=== PATIENT | male | born 1950 | race Two or more races ===

== ENCOUNTER 2024-04-23 05:10 | Day surgery (SDC) | payer OTHER ==
[2024-04-17 09:27] LABS: URINE APPEARANCE Clear; URINE BILIRRUBIN Negative (NEGATIVE); URINE BLOOD Negative; URINE COLOR Yellow; URINE GLUCOSE Negative (NEGATIVE); URINE KETONE Negative (NEGATIVE); URINE LEUKOCYTE Negative; URINE NITRATE Negative; URINE PROTEIN Negative (NEGATIVE); URINE UROBILINOGEN 0.2 E.U./dl
[2024-04-17 09:28] LABS: URINE RBC 12.3 uL (0.0-20.8)
[2024-04-17 09:30] LABS: URINE BACTERIA 0 uL (0.0-1933); URINE EPITHELIAL CELLS 0.4 uL (0.0-38.8); URINE WBC 0.4 uL (0.0-23.2)
[2024-04-17 09:39] LABS: HEMATOCRIT 38.4 % (39.0-48.0); HEMOGLOBIN 13.3 g/dL (13-16.00); MEAN CELL VOLUME 89.7 fL (80.0-100.00); MEAN CORPUSCULAR HEMOGLOBIN 31.1 pg (27.00-32.0); MEAN CORPUSCULAR HGB CONC 34.6 g/dl (32.0-36.0); PLATELET COUNT 191 K/uL (150-450); RED BLOOD COUNT 4.27 M/uL (4.00-6.00)
[2024-04-17 09:55] LABS: INR 0.97; PARTIAL THROMBOPLASTIN TIME 28.2 SECONDS (22.0-34.0); PROTHROMBIN TIME 10.6 SECONDS (9.0-11.5)
[2024-04-17 10:01] LABS: ALBUMIN 3.6 gm/dL (3.4-5.0); BILIRUBIN TOTAL 0.64 mg/dL (0.3-1.2); CALCIUM 9.7 mg/dL (8.5-10.1); CREATININE SERUM 1.15 mg/dL (0.70-1.30); GFR 62.33; GLOBULINA 3.8 G/DL (2.4-3.5); POTASSIUM 4.32 mEq/L (3.5-5.1); TOTAL PROTEIN 7.4 gm/dL (6.4-8.2)
[~2024-04-23 05:10] MED LIST: INDERAL LA80 MG PO; METFORMIN HCL500 M3 PO; SYNTHROID100 MCG PO; SYNTHROID112 MCG PO
[2024-04-23] MEDS ORDERED: KETOROLAC TROMETHAMINE 30 MG VIAL ONE ×2 (06:51→06:52)
[2024-04-23] MEDS ORDERED: BUPIVACAINE HCL/MPF 0.5% 30ML VIAL ONE (06:51)
[2024-04-23] MEDS ORDERED: LIDOCAINE HCL 1%/EPINEPHRINE 20ML VIAL IJ ONE (06:52)
[2024-04-23] MEDS ORDERED: CEFAZOLIN SODIUM 1,000 MG VIAL ONE (07:13)
[2024-04-23] MEDS ORDERED: SUGAMMADEX SODIUM 200 MG/2 ML VIAL IV ONE (08:56)
[2024-04-23] MEDS ORDERED: MORPHINE SULFATE 2 MG/ML CARTRIDGE IV ONE (10:55)
[2024-04-23] MEDS ORDERED: MORPHINE SULFATE 4 MG/ML VIAL IV ONE (10:55)
== END 2024-04-23 12:00 | disposition home or self-care (01) ==
LOC: CIR.AMB 05:10
PROVIDERS: ATTEND Orthopaedic Surgery
DX: M75.122 Complete rotator cuff tear or rupture of left shoulder, not specified as traumatic (principal); M24.112 Other articular cartilage disorders, left shoulder; M75.22 Bicipital tendinitis, left shoulder; I10 Essential (primary) hypertension; E11.9 Type 2 diabetes mellitus without complications; E03.9 Hypothyroidism, unspecified; K21.9 Gastro-esophageal reflux disease without esophagitis; H26.9 Unspecified cataract